=== PATIENT | male | born 1965 | race Caucasian/White ===

== ENCOUNTER 2019-01-23 09:07 | Emergency (ER) | payer OTHER, SELFPAY ==
[2019-01-23] VITALS (15 sets, daily range): BP systolic 118–143; BP diastolic 63–83; PULSE 59–85; RESP 16; TEMP 36.5; O2SAT 94–99
--- NOTE | 2019-01-23 09:19 | W.ED.GENAD ---
Discharge Plan Disposition Patient Disposition: HOME Condition: Improving Discharge Details Chief Complaint: Abd Prob Clinical Impression: Dizziness, Abdominal pain Primary Care Provider: Mal Toscano ED Provider: Maria D Frances Home Meds and New Rx's Prescriptions: No Action No Known Home Meds RF: 0 Discharge Instructions Instructions: Abdominal Pain (ED), Dizziness (ED) Additional Instructions: Call your primary care doctor and culinary worker today to schedule follow-up appointments for reevaluation. If your dizziness persists, discussed with your primary care doctor whether a international relations professor is indicated. Return immediately to the emergency department if you develop any worsening or new concerning symptoms. Discharge Data Discharge Physician: Maria D Frances Medical Decision Making 53-year-old male with a history of hepatitis C and cirrhosis who presents with lower abdominal pain that was present for several hours starting 2 nights ago that is now resolved and with dizziness and episode of falling over with bending over today. Denies chest pain, shortness of breath, palpitations, headache or numbness. Blood pressure mildly hypertensive, remainder vitals within normal limits. He appears nontoxic. Abdomen tender suprapubic and left lower quadrant. There is no guarding, rigidity or pulsatile mass. No focal deficits. Differential diagnosis includes dehydration, electrolyte abnormality, acute abdominal abnormality including diverticulitis, pancreatitis, small bowel obstruction, appendicitis, AAA. Due to his episode of falling over feeling like he was pushed with bending over today, will obtain CT head, bolus IV fluids, screening labs, CT abdomen and pelvis and ecg. 1300 --labs and imaging reviewed and unremarkable. Normal white blood cell count, coagulation studies, electrolytes. T bili 2.4 which is close to baseline. Troponin negative. Lipase negative. Urinalysis notes ketones which could be consistent with dehydration as well as trace blood. CT abdomen and pelvis no acute process. There was a stenosis at the celiac trunk and then distal vessels appeared within normal limits. Patient states he feels much better after IV fluids here and feels good to go home. He was notified of the CT result and that it may not be contributing to his process today but to follow-up with his primary care doctor for reevaluation. He was advised to follow-up with his culinary worker at [facility] for reevaluation of his cirrhosis. He was advised that if his symptoms of dizziness or lightheadedness persist, to speak to his primary care doctor about possible outpatient international relations professor. He was recommended to drink plenty of fluids, get plenty of rest and to return here at any time if worse. Medical Records Medical records reviewed: Yes I reviewed the patient's medical records. Imaging Data Radiologic Study: Radiologist's impression: CRANIAL CT: 01/[address] was performed. Note is made of mucoperiosteal thickening of ethmoid and right sphenoid sinuses consistent with mild chronic sinusitis. Otherwise, paranasal sinuses are well aerated as are the mastoid air cells. The orbital and temporal bone structures appear intact. Ventricular system is normal in appearance. No evidence of acute intracranial hemorrhage, mass effect or midline shift. CHEST, ABDOMEN AND PELVIC CT: 01/23 CT angiography of the chest was performed followed by scanning of the abdomen and pelvis. Lungs are clear. No pleural effusion or pneumothorax. No mediastinal or hilar adenopathy. Thoracic aorta appears normal with no aneurysm or dissection. Pulmonary arteries are not adequately opacified to exclude pulmonary embolic disease. Liver, spleen and pancreas appear normal. Gallbladder and bile ducts are CT normal. Adrenals and kidneys appear normal. No abdominal wall hernia. No abdominal or pelvic adenopathy. No evidence of diverticulitis or bowel obstruction. Normal appearance of the appendix. Abdominal aorta is of normal diameter. No abdominal aortic aneurysm or dissection. 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 More distal vessel appears normal. Remainder of the major abdominal branches of the abdominal aorta appear normal. CONCLUSION: No evidence of acute process. 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 Lab Data Lab results reviewed: Yes I reviewed the patient's lab results. Laboratory Tests Range/Units 01/23/19 01/23/19 01/23/19 09:17 10:00 10:00 WBC (4.4-10.8) k/cumm 4.70 RBC (4.50-6.00) m/cumm 5.41 Hgb (13.5-17.5) g/dL 16.6 Hct (40.0-50.0) % 47.4 MCV (80-95) fL 87.6 MCH (27.0-33.0) pg 30.7 MCHC (32.0-36.0) g/dL 35.0 RDW (11.8-14.1) % 13.7 Plt Count (130-400) x1000/uL 194 MPV (8.0-11.0) fL 10.1 Immature Gran % 0.2 Neutrophils % 62.2 Lymphocytes % 27.4 Monocytes % 6.8 Eosinophils % 3.2 Basophils % 0.2 Absolute Neutrophils (1.2-6.7) k/cumm 2.92 Absolute Lymphocytes (1.2-3.4) k/cumm 1.29 Absolute Monocytes (0.11-0.7) k/cumm 0.32 Absolute Eosinophils (0.0-0.7) k/cumm 0.15 Absolute Basophils (0.0-0.2) k/cumm 0.01 PT (9.3-11.0) sec INR (0.9-1.1) APTT (21.0-31.4) sec Sodium (136-145) mmol/L 139 Potassium (3.5-5.1) mmol/L 3.9 Chloride (98-107) mmol/L 105 Carbon Dioxide (21.0-32.0) mmol/L 24.9 Anion Gap (3-11) mmol/L 9.1 BUN (7-18) mg/dL 18 Creatinine (0.70-1.30) mg/dL 0.99 Estimated GFR/1.73 m2 (mL/min/1.73m2) >= 60.00 Glucose (70-100) mg/dL 123 H Calcium (8.5-10.1) mg/dL 8.8 Magnesium (1.8-2.4) mg/dL 1.8 Total Bilirubin (0.2-1.0) mg/dL 2.4 H AST (15-37) U/L 12 L ALT (12-78) U/L 16 Alkaline Phosphatase (46-116) U/L 67 Troponin I (0.00-0.06) ng/mL < 0.05 Total Protein (6.4-8.2) g/dL 7.3 Albumin (3.4-5.0) g/dL 3.8 Lipase (73-393) U/L 112 Urine Color (Yellow) Yellow Urine Clarity (Clear) Sl cloudy Urine pH (5-8) 6.5 Ur Specific Hammond (1.005-1.025) 1.020 Urine Protein (Negative) mg/dL Negative Urine Ketones (Negative) mg/dL Trace H Urine Blood (Negative) Trace-intact H Urine Nitrite (Negative) Negative Urine Bilirubin (Negative) Negative Urine Urobilinogen (Up TO 0.2) EU/dL 1.0 H Ur Leukocyte Esterase (Negative) Negative Urine RBC (0-2) 5-10 H Urine WBC (0-5) HPF 0-2 Ur Epithelial Cells (Negative) HPF Rare Urine Crystals (Negative) HPF Negative Urine Bacteria (Negative) HPF Rare Urine Casts (Negative) LPF Negative Urine Mucus (Negative) Moderate Ur Culture Indicated? No Urine Glucose (Negative) mg/dL Negative Range/Units 01/23/19 10:00 WBC (4.4-10.8) k/cumm RBC (4.50-6.00) m/cumm Hgb (13.5-17.5) g/dL Hct (40.0-50.0) % MCV (80-95) fL MCH (27.0-33.0) pg MCHC (32.0-36.0) g/dL RDW (11.8-14.1) % Plt Count (130-400) x1000/uL MPV (8.0-11.0) fL Immature Gran % Neutrophils % Lymphocytes % Monocytes % Eosinophils % Basophils % Absolute Neutrophils (1.2-6.7) k/cumm Absolute Lymphocytes (1.2-3.4) k/cumm Absolute Monocytes (0.11-0.7) k/cumm Absolute Eosinophils (0.0-0.7) k/cumm Absolute Basophils (0.0-0.2) k/cumm PT (9.3-11.0) sec 10.2 INR (0.9-1.1) 1.0 APTT (21.0-31.4) sec 24.3 Sodium (136-145) mmol/L Potassium (3.5-5.1) mmol/L Chloride (98-107) mmol/L Carbon Dioxide (21.0-32.0) mmol/L Anion Gap (3-11) mmol/L BUN (7-18) mg/dL Creatinine (0.70-1.30) mg/dL Estimated GFR/1.73 m2 (mL/min/1.73m2) Glucose (70-100) mg/dL Calcium (8.5-10.1) mg/dL Magnesium (1.8-2.4) mg/dL Total Bilirubin (0.2-1.0) mg/dL AST (15-37) U/L ALT (12-78) U/L Alkaline Phosphatase (46-116) U/L Troponin I (0.00-0.06) ng/mL Total Protein (6.4-8.2) g/dL Albumin (3.4-5.0) g/dL Lipase (73-393) U/L Urine Color (Yellow) Urine Clarity (Clear) Urine pH (5-8) Ur Specific Hammond (1.005-1.025) Urine Protein (Negative) mg/dL Urine Ketones (Negative) mg/dL Urine Blood (Negative) Urine Nitrite (Negative) Urine Bilirubin (Negative) Urine Urobilinogen (Up TO 0.2) EU/dL Ur Leukocyte Esterase (Negative) Urine RBC (0-2) Urine WBC (0-5) HPF Ur Epithelial Cells (Negative) HPF Urine Crystals (Negative) HPF Urine Bacteria (Negative) HPF Urine Casts (Negative) LPF Urine Mucus (Negative) Ur Culture Indicated? Urine Glucose (Negative) mg/dL ECG Data Attestation: I personally reviewed and interpreted this ECG (s) as follows: Interpretation: Rate of 68, sinus, no acute ST elevation or depression. QTc 404. ND 154. QRS 92. HPI General Mode of arrival: ambulatory. Date/Time Provider Initiated Documentation: 01/23/19 09:17. Limitations to Documentation: no limitations. Information obtained by: patient. HPI Narrative: Patient is a 53-year-old male with a history of hepatitis C and stage IV cirrhosis who presents with sharp abdominal pain that started 2 nights ago in his lower abdomen that was present for several hours and is now resolved. Patient states he came here today because he became lightheaded while tying his shoes this morning and when at work and bending over he fell over feeling like something had pushed him over onto the ground. He denies any injuries. He states he did not pass out. He states he had a similar episode of abdominal pain 6 months ago but did not seek medical treatment. He states he is followed by GI Dr. Cadet at [facility] and last saw her one year ago. He states he has been eating and drinking normally. He denies fever. He admits to nausea but denies any vomiting. He states his stools have been loose and brown for the last several months. He states he has never gotten a colonoscopy. He denies any palpitations, chest pain or shortness of breath at time of lightheadedness. He denies headache, visual changes, speech changes, facial droop, or unilateral numbness or weakness. Related Data Home Medications Medication Instructions Recorded Confirmed Unknown [No Known Home Meds] 01/23/19 01/23/19 Allergies Allergy/AdvReac Type Severity Reaction Status Date / Time No Known Allergies Allergy Unverified 01/23/19 09:17 General Stated Complaint: Abd Prob COTY: 3 Review of Systems Review of Systems All systems reviewed & are unremarkable except as noted in HPI and below Constitutional Reports as per HPI, Denies chills and Denies fever(s) Eyes Denies blurry vision ENT Denies dizziness, Denies sore throat and Denies throat swelling Cardiovascular Denies chest pain and Denies dyspnea Respiratory Denies cough and Denies dyspnea Gastrointestinal Denies abdominal pain, Denies diarrhea and Denies vomiting Genitourinary Denies hematuria and Denies dysuria Musculoskeletal Denies back pain and Denies numbness Integumentary/Breasts Denies lesions and Denies rash Neurologic Denies dizziness, Denies focal weakness and Denies numbness Allergic/Immunologic Denies throat swelling [facility] Medical History Cirrhosis (Acute) Hepatitis C (Inactive 10/11/14) Surgical History Fracture, Open Treatment History of elbow surgery (Acute) History of foot surgery (Acute) History of knee surgery (Acute) Family History Mother Personal history of malignant neoplasm Stroke Father Alcoholic cirrhosis Sister Alcohol abuse Brother Alcohol abuse Sister Substance abuse Personal history of malignant neoplasm Sister No problems noted. Sister No problems noted. Sister Personal history of malignant neoplasm Brother Substance abuse Brother No problems noted. Brother No problems noted. Social History Smoking/Tobacco Use Status: Former Tobacco Use Drug use: Never Exam Const General: cooperative, healthy appearing and no acute distress HENMT Head: normal to inspection Ears: hearing grossly normal bilaterally, external ears normal and TM's normal bilaterally General nose exam: external nose normal Face and sinus: normal facial exam Eyes General: appearance normal, both eyes and all related structures Pupils: PERRL EOM: EOM intact bilaterally Neck Neck: normal visual inspection and No submandibular swelling Lymphatic: no lymphadenopathy noted Chest Chest: normal inspection of the chest and no tenderness Resp Effort & Inspection: normal respiratory effort and able to speak in complete sentences Auscultation: clear to auscultation bilaterally Cardio Rate: regular rate Rhythm: regular rhythm GI Inspection: normal to inspection Palpation: soft, not firm, no guarding, no masses, no pulsatile masses, not rigid and tender in the LLQ Auscultation: hypoactive bowel sounds Back/Spine/Pelvis Back: no CVA tenderness Skin General skin exam: no rashes or lesions noted Neuro General: alert, awake and oriented x3 Cranial Nerves: CN's II-XI intact bilaterally Cognition: normal cognition Speech: speech normal Motor: muscle tone normal throughout and strength 5/5 throughout Sensory Exam: no sensory deficits noted Extrem General: normal to inspection, full ROM, normal capillary refill, no calf tenderness bilaterally and no edema Psych Appearance: grossly normal Mental Status: mental status grossly normal Speech and Movement: speech and movement normal Affect: normal affect Course Vital Signs Temperature 97.7 F 01/23/19 09:11 Pulse 85 01/23/19 09:11 Respiratory Rate 16 01/23/19 09:11 Blood Pressure 143/83 H 01/23/19 09:11 Pulse Oximetry 97 01/23/19 09:11 Temperature 97.7 F 01/23/19 09:11 Temperature Source Skin 01/23/19 09:11 Pulse 85 01/23/19 09:11 Respiratory Rate 16 01/23/19 09:11 Blood Pressure 143/83 H 01/23/19 09:11 Blood Pressure Position Sitting 01/23/19 09:11 Pulse Oximetry 97 01/23/19 09:11 Oxygen Delivery Method Room Air 01/23/19 09:11 Oxygen Flow Rate 0 01/23/19 09:11 Pain Level 2 01/23/19 09:11
[2019-01-23 09:26] LABS: Bilirubin Negative (Negative); Blood Trace-intact (Negative); Clarity Sl Cloudy (Clear); Glucose Negative (Negative); Ketones Trace mg/dL (Negative); Leukocyte Esterase Negative (Negative); Nitrite Negative (Negative); pH 6.5 (5-8)
[2019-01-23 09:36] LABS: Bacteria Rare HPF (Negative); Epithelial Cells Rare HPF (Negative); WBC 0-2 HPF (0-5)
[2019-01-23 09:37] LABS: C & S Indicated? No; Casts Negative LPF (Negative); Crystals Negative HPF (Negative); Mucus Moderate (Negative)
--- NOTE | 2019-01-23 09:48 | DI.CT_ITS ---
SYMPTOM/DIAGNOSIS: DIZZINESS, ABD PAIN, R/O PE/AAA/DIVERTICULITIS/SBO CHEST, ABDOMEN AND PELVIC CT: 01/23 CT angiography of the chest was performed followed by scanning of the abdomen and pelvis. Lungs are clear. No pleural effusion or pneumothorax. No mediastinal or hilar adenopathy. Thoracic aorta appears normal with no aneurysm or dissection. Pulmonary arteries are not adequately opacified to exclude pulmonary embolic disease. Liver, spleen and pancreas appear normal. Gallbladder and bile ducts are CT normal. Adrenals and kidneys appear normal. No abdominal wall hernia. No abdominal or pelvic adenopathy. No evidence of diverticulitis or bowel obstruction. Normal appearance of the appendix. Abdominal aorta is of normal diameter. No abdominal aortic aneurysm or dissection. 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 More distal vessel appears normal. Remainder of the major abdominal branches of the abdominal aorta appear normal. CONCLUSION: No evidence of acute process. 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
--- NOTE | 2019-01-23 09:53 | DI.CT_ITS ---
SYMPTOM/DIAGNOSIS: DIZZINESS, SUDDENLY FELL OVER BENDING OVER CRANIAL CT: 01/[address] was performed. Note is made of mucoperiosteal thickening of ethmoid and right sphenoid sinuses consistent with mild chronic sinusitis. Otherwise, paranasal sinuses are well aerated as are the mastoid air cells. The orbital and temporal bone structures appear intact. Ventricular system is normal in appearance. No evidence of acute intracranial hemorrhage, mass effect or midline shift. CONCLUSION: No evidence of acute intracranial process.
[2019-01-23] MEDS: Normal Saline Flush 10 ML SYR IVP (10:00)
[2019-01-23] MEDS: Normal Saline 1,000 ML 1000 ML IV (10:00)
[2019-01-23 10:14] LABS: Abs Immature Grans 0.01 k/cumm (0.0-0.09); Absolute Basophil Count 0.01 k/cumm (0.0-0.2); Absolute Eosinophil Count 0.15 k/cumm (0.0-0.7); Absolute Lymphocyte Count 1.29 k/cumm (1.2-3.4); Absolute Monocyte Count 0.32 k/cumm (0.11-0.7); Absolute Neutrophil Count 2.92 k/cumm (1.2-6.7); Basophils % 0.2; Eosinophils % 3.2; HCT 47.4 % (40.0-50.0); HGB 16.6 g/dL (13.5-17.5); Immature Grans % 0.2; Lymphocytes % 27.4; Mean Corpuscular Hemoglobin 30.7 pg (27.0-33.0); Mean Corpuscular Volume 87.6 fL (80-95); Mean Platelet Volume 10.1 fL (8.0-11.0); Monocytes % 6.8; Neutrophils % 62.2; Platelet Count 194 x1000/uL (130-400); RBC 5.41 m/cumm (4.50-6.00); RBC Distribution Width 13.7 % (11.8-14.1)
[2019-01-23 10:28] LABS: PTT Activated 24.3 sec (21.0-31.4); Prothrombin Time 10.2 sec (9.3-11.0)
[2019-01-23 10:32] LABS: ALT 16 U/L (12-78); AST 12 U/L (15-37); Albumin 3.8 g/dL (3.4-5.0); Alkaline Phosphatase 67 U/L (46-116); Anion Gap 9.1 mmol/L (3-11); BUN 18 mg/dL (7-18); Bilirubin, Total 2.4 mg/dL (0.2-1.0); CO2 24.9 mmol/L (21.0-32.0); CREATININE 0.99 mg/dL (0.70-1.30); Calcium 8.8 mg/dL (8.5-10.1); Chloride 105 mmol/L (98-107); Glucose 123 mg/dL (70-100); Lipase 112 U/L (73-393); Magnesium 1.8 mg/dL (1.8-2.4); Potassium 3.9 mmol/L (3.5-5.1); Sodium 139 mmol/L (136-145); Total Protein 7.3 g/dL (6.4-8.2)
[2019-01-23 10:34] LABS: Troponin I < 0.05 ng/mL (0.00-0.06)
[2019-01-23] MEDS: Omnipaque 350 MG/ML 100 ML BTL IJ (11:49)
== END 2019-01-23 13:58 | disposition home or self-care (01) ==
PROVIDERS: Emergency Provider Physician Assistant; PCP Emergency Medicine
DX: R10.32 Left lower quadrant pain (principal); R42 Dizziness and giddiness; R03.0 Elevated blood-pressure reading, without diagnosis of hypertension; K74.60 Unspecified cirrhosis of liver; Z86.19 Personal history of other infectious and parasitic diseases
CPT/HCPCS: 36415; 71275; 74177; 80053; 83690; 93005; 96360; 99285; 70450; 81003; 81015; 83735; 84484; 85025; 85610; 85730; 93010; J3490

== ENCOUNTER 2019-02-21 19:57 | Outpatient (REF) | payer OTHER, SELFPAY ==
[2019-02-21 20:10] LABS: Bilirubin Negative (Negative); Blood Negative (Negative); Clarity Clear (Clear); Glucose Negative (Negative); Ketones Negative (Negative); Leukocyte Esterase Negative (Negative); Nitrite Negative (Negative); Specific Gravity 1.015 (1.005-1.025); Urobilinogen 0.2 EU/dL (Up TO 0.2)
== END 2019-02-21 20:17 ==
LOC: LBN 19:57
PROVIDERS: PCP Emergency Medicine; Visit Provider Emergency Medicine
DX: R30.0 Dysuria (principal)
CPT/HCPCS: 81003

== ENCOUNTER 2019-07-11 09:45 | Outpatient (CLI) | payer OTHER, SELFPAY ==
--- NOTE | 2019-07-11 16:15 | DI.RAD_ITS ---
EXAM: XR LUMBAR SPINE COMPLETE CLINICAL HISTORY: ls pain M54.5 LOW BACK PAIN COMPARISON: No exams were available for comparison FINDINGS: Five views were obtained. There are moderate degenerative changes of the SI joints bilaterally. The re is narrowing of the intervertebral disc spaces, particularly at L4-5 and L5-S1 where there is a va cuum disc phenomenon consistent with disc degeneration. Moderate hypertrophic spurring of the verteb ral endplates and facet joints noted in the lower lumbar region. No evidence of spondylolysis or spondylolisthesis. No compression fracture identified. IMPRESSION: Degenerative changes and evidence of disc degeneration as described above.
== END 2019-07-11 10:05 ==
PROVIDERS: PCP Emergency Medicine; Visit Provider Emergency Medicine
DX: M54.5 Low back pain (principal); M53.3 Sacrococcygeal disorders, not elsewhere classified; M51.37 Other intervertebral disc degeneration, lumbosacral region
CPT/HCPCS: 72110

== ENCOUNTER 2021-07-24 03:46 | Outpatient (CLI) | payer OTHER, SELFPAY ==
[2021-07-24 09:20] LABS: Calculated LDL 88 mg/dL (<100); Cholesterol 152 mg/dL (<200); HDL Cholesterol 49 mg/dL (40-60); Triglyceride 75 mg/dL (<150)
[2021-07-24 10:07] LABS: Hemoglobin A1C 5.1 % (<5.7)
[2021-07-24 18:02] LABS: PSA, Screening 0.6 ng/mL (0.0-3.5)
== END 2021-07-24 03:47 | disposition home or self-care (01) ==
LOC: LBO 03:46
PROVIDERS: PCP Family Medicine; Visit Provider Emergency Medicine
DX: E66.9 Obesity, unspecified (principal); Z12.5 Encounter for screening for malignant neoplasm of prostate; E11.9 Type 2 diabetes mellitus without complications
CPT/HCPCS: 36415; 80061; 84153; 83036

== ENCOUNTER → 2023-01-17 02:30 | Outpatient (CLI) | payer OTHER, SELFPAY ==
--- NOTE | 2023-01-17 08:00 | DI.RAD_ITS ---
Exam(s) XR KNEE LT 3V AP,LAT,TOÑO EXAM: XR KNEE LT 3V AP,LAT,TOÑO CLINICAL HISTORY: left knee pain,m25.569. TECHNIQUE: 2D digital imaging was performed. Three views. COMPARISON: No exams were available for comparison FINDINGS: BONES: No acute fracture is present. No bony destructive lesion is seen. JOINTS: The knee is normally aligned. No joint effusion is seen. Joint spaces are maintained. Mild spurring at the articular aspect of the patella. Some regularity at the articular surface of the pa tella, not abnormally profiled. SOFT TISSUE: Normal. IMPRESSION: [id number] degenerative changes of the patellofemoral joint. DATA REPOSITORY: RADIATION DOSE DELIVERED:
== END ==
PROVIDERS: PCP Nurse Practitioner Family; Visit Provider Family Medicine
DX: M17.12 Unilateral primary osteoarthritis, left knee
CPT/HCPCS: 73562

== ENCOUNTER → 2023-01-25 02:02 | Outpatient (CLI) | payer OTHER, SELFPAY ==
--- NOTE | 2023-01-25 08:00 | DI.MRI_ITS ---
Exam(s) MR LOWER JOINT LT WO EXAM: MR LOWER JOINT LT WO CLINICAL HISTORY: left knee pain,m25.569. TECHNIQUE: Multiplanar multisequence MRI was performed. COMPARISON: CR XR KNEE LT 3V AP,LAT,TOÑO from 01/17/2023 FINDINGS: BONES: There is no fracture or contusion pattern. JOINTS: There is loss of the articular cartilage and subchondral edema involving the medial patellar facet. There is also mild hyperintense signal seen in the articular cartilage overlying the medial f emoral condyle. No effusion is present. TENDONS: Extensor mechanism: Unremarkable. Medial retinaculum: Unremarkable. Lateral retinaculum: Unremarkable. Popliteus: Unremarkable. MUSCLES: Unremarkable. MENISCI: There is hyperintense signal seen in the root of the medial meniscus consistent with a tear. There is a tear of the body of the medial meniscus. The lateral meniscus is unremarkable. SOFT TISSUES: Unremarkable. LIGAMENTS: Anterior Cruciate: There is hyperintense signal seen in the distal aspect of the anterior cruciate li gament which may represent a partial tear. Posterior Cruciate: Unremarkable. Medial Collateral:Unremarkable. Lateral Collateral: Unremarkable. OTHER: There is thickening and intermediate signal seen in the semimembranosus tendon at its insertio n onto the medial condyle of the tibia. There is mild hyperintense signal in the soft tissues adjace nt to this tendon. IMPRESSION: 1. Findings of tear of the body of the medial meniscus. Question of a tear also involving the root o f the medial meniscus. 2. Hyperintense signal seen in the distal aspect of the anterior cruciate ligament which may represen t a partial tear. 3. Thickening and intermediate signal seen in the distal semimembranosus tendon at its insertion into the medial condyle of the tibia. Mild adjacent hyperintense signal is seen. Tendinosis versus part ial tear. Please correlate with site of pain. 4. Grade 4 chondromalacia patella. DATA REPOSITORY:
== END ==
PROVIDERS: PCP Nurse Practitioner Family; Visit Provider Family Medicine
DX: S83.231A Complex tear of medial meniscus, current injury, right knee, initial encounter; M22.42 Chondromalacia patellae, left knee; X58.XXXA Exposure to other specified factors, initial encounter
CPT/HCPCS: 73721

== ENCOUNTER 2024-07-24 10:13 | Outpatient (CLI) | payer OTHER, SELFPAY ==
[2024-07-24 13:46] LABS: Calculated LDL 83 mg/dL (<100); Cholesterol 164 mg/dL (<200); HDL Cholesterol 61 mg/dL (40-60); Triglyceride 102 mg/dL (<150)
[2024-07-24 18:44] LABS: PSA, Screening 0.9 ng/mL (<=3.5)
== END 2024-07-24 10:14 | disposition home or self-care (01) ==
LOC: LOS 10:13
PROVIDERS: PCP Nurse Practitioner Family; Referring Provider Nurse Practitioner Family; Visit Provider Nurse Practitioner Family
DX: Z00.00 Encounter for general adult medical examination without abnormal findings (principal); Z12.5 Encounter for screening for malignant neoplasm of prostate; Z23 Encounter for immunization; K74.60 Unspecified cirrhosis of liver
CPT/HCPCS: 36415; 80061; 84153